=== PATIENT | male | born 1990 | race Caucasian/White ===

== ENCOUNTER 2024-04-06 13:32 | Emergency (ER) | payer OTHER ==
[~2024-04-06] VITALS: Ht 190.5 cm; Wt 72.6 kg
[2024-04-06 13:48] VITALS: BP 109/62; TEMP 97.9
[2024-04-06] MEDS ORDERED: IBUP-1955 PO (14:57)
[2024-04-06 15:12] VITALS: O2SAT 98
== END 2024-04-06 15:14 | disposition home or self-care (01) ==
LOC: ER 13:32
DX: S93.402A Sprain of unspecified ligament of left ankle, initial encounter (principal); S93.602A Unspecified sprain of left foot, initial encounter; Y93.39 Activity, other involving climbing, rappelling and jumping off; Y93.89 Activity, other specified; Y92.89 Other specified places as the place of occurrence of the external cause; Y99.8 Other external cause status
CPT/HCPCS: 73610-TC; 73630-TC